=== PATIENT | female | born 1965 | race Caucasian/White ===

== ENCOUNTER → 2016-10-28 | Outpatient (CLI) | payer BC ==
--- NOTE | 2016-10-28 12:12 | DIAGNOSTIC IMAGING REPORT ---
RIGHT FOOT MIN 3 VIEWS ROUTINE CLINICAL HISTORY: RIGHT TOE/FOOT TOE Right trauma COMPARISON: None. DISCUSSION: Nondisplaced oblique fracture distal phalanx right great toe. No evidence for extension to the articular surface. No evidence of dislocation. All remaining osseous structures are unremarkable. Mild associated soft tissue edema IMPRESSION: Oblique nondisplaced fracture distal phalanx right great toe Electronically signed by: Ralph Moura M.D. 10/28/2016 12:11 PM Dictated Date/Time: 10/28/2016 12:10 PM
== END | disposition home or self-care (01) ==
LOC: C.RAD1850 11:54
PROVIDERS: ATTEND Family Medicine
DX: S92.424A Nondisplaced fracture of distal phalanx of right great toe, initial encounter for closed fracture (principal); W23.1XXA Caught, crushed, jammed, or pinched between stationary objects, initial encounter

== ENCOUNTER → 2016-11-12 | Outpatient (CLI) | payer BC ==
--- NOTE | 2016-11-12 09:24 | DIAGNOSTIC IMAGING REPORT ---
Right great toe 3 views CLINICAL HISTORY: Right great toe fracture COMPARISON: 10/28/2016 DISCUSSION: There is no change in alignment of the nondisplaced fracture involving the distal phalanx. There are mild degenerative changes the level the first metatarsal phalangeal joint. No callus formation is yet evident. IMPRESSION: Nondisplaced fracture of the distal phalanx. Electronically signed by: Hamzah Chong M.D. 11/12/2016 9:23 AM Dictated Date/Time: 11/12/2016 9:22 AM
== END | disposition home or self-care (01) ==
LOC: C.RDSM 14:12
PROVIDERS: ATTEND Internal Medicine
DX: S92.424A Nondisplaced fracture of distal phalanx of right great toe, initial encounter for closed fracture (principal); X58.XXXA Exposure to other specified factors, initial encounter

== ENCOUNTER → 2016-11-26 | Outpatient (CLI) | payer BC ==
--- NOTE | 2016-11-26 10:00 | DIAGNOSTIC IMAGING REPORT ---
RIGHT FIRST TOE RADIOGRAPHS CLINICAL HISTORY: Healing right first toe fracture COMPARISON: Right foot radiographs October 28, 2016 and right first toe radiographs November 12, 2016. FINDINGS: There has been no change in alignment of the nondisplaced comminuted fracture of the distal phalanx of the right first toe. Minimal interval healing is noted. Fracture lines remain evident. IMPRESSION: No change in alignment of the comminuted nondisplaced fracture the distal phalanx of the right first toe. Minimal interval healing. Electronically signed by: Anthony Hernandez M.D. 11/26/2016 9:58 AM Dictated Date/Time: 11/26/2016 9:57 AM
== END | disposition home or self-care (01) ==
LOC: C.LAB1850 09:30
PROVIDERS: ATTEND Internal Medicine
DX: S92.401A Displaced unspecified fracture of right great toe, initial encounter for closed fracture (principal); X58.XXXA Exposure to other specified factors, initial encounter

== ENCOUNTER → 2017-01-05 | Outpatient (CLI) | payer BC ==
--- NOTE | 2017-01-05 10:14 | DIAGNOSTIC IMAGING REPORT ---
RIGHT FIRST TOE 3 VIEWS HISTORY: FRACTURE OF RIGHT GREAT TOE Right COMPARISON: Right first toe 11/26/2016. FINDINGS: Healing nondisplaced fracture at the distal phalanx of the right first toe. The alignment appears anatomic. Soft tissue swelling persists. No dislocation. No radiopaque foreign bodies. IMPRESSION: Progressive healing within the nondisplaced fracture at the distal phalanx of the right first toe. Electronically signed by: Navid Jimenez M.D. 01/05/2017 10:13 AM Dictated Date/Time: 01/05/2017 10:11 AM
== END | disposition home or self-care (01) ==
LOC: C.RDSM 10:00
PROVIDERS: ATTEND Internal Medicine
DX: S92.404D Nondisplaced unspecified fracture of right great toe, subsequent encounter for fracture with routine healing (principal); X58.XXXD Exposure to other specified factors, subsequent encounter